=== PATIENT | male | born 1985 | race Caucasian/White ===

== ENCOUNTER 2021-03-19 18:18 | Emergency (ER) | payer MEDICAID, OTHER ==
[2021-03-19 18:31] VITALS: BP 134/79
--- NOTE | 2021-03-19 18:54 | ED Physician Documentation ---
History of Present Illness - Stated complaint Stated Complaint: NO TASTE/COUGH/BRAIN FOG - Chief complaint Chief Complaint: General - Additonal information Additional information: 35-year-old male who has no pertinent past medical history presents emergency department for evaluation of dry cough, loss of taste and smell that began 2 days ago. He was vaccinated against COVID-19 1 month ago with a [employer] vaccine. He did spend lots of time with 2 close friends about 1 week ago who have subsequently tested positive for Covid. He otherwise feels well. No chest pain or shortness of breath. Review of Systems Constitutional: denies: Fever, Chills Eyes: reports: Reviewed and negative Ears: reports: Reviewed and negative Nose: reports: Other (Loss of taste and smell) Throat: reports: Reviewed and negative Cardiac: reports: Reviewed and negative Respiratory: reports: Cough GI: reports: Reviewed and negative : reports: Reviewed and negative Skin: reports: Reviewed and negative Musculoskeletal: reports: Reviewed and negative PD PAST MEDICAL HISTORY - Past Medical History Past Medical History: Yes Cardiovascular: Other Respiratory: None Endocrine/Autoimmune: None GI: Other : None Psych: None Derm: None Other Past Medical History: ideopathic cholitis.pericardial cyst - Past Surgical History Past Surgical History: Yes General: Other HEENT: Tonsil/Adenoidectomy - Present Medications Home Medications: Ambulatory Orders Medication Instructions Recorded Confirmed No Known Home Medications 05/16/17 03/19/21 - Allergies Allergies/Adverse Reactions: Allergies Allergy/AdvReac Type Severity Reaction Status Date / Time No Known Drug Allergies Allergy Verified 03/19/21 18:30 - Social History Does the pt smoke?: No Smoking Status: Never smoker Does the pt drink ETOH?: No Does the pt have substance abuse?: Yes - Immunizations Immunizations are current?: Yes - POLST Patient has POLST: No PD ED PE NORMAL - General General: Alert and oriented X 3, No acute distress - HEENT HEENT: PERRL - Neck Neck: Supple, no meningeal sign - Cardiac Cardiac: RRR, No murmur - Respiratory Respiratory: Clear bilaterally - Abdomen Abdomen: Normal bowel sounds, Soft, Non tender, Non distended Results - Vitals Vitals: Vital Signs - 24 hr 03/19/21 18:26 Temperature 36.7 C Heart Rate 96 Respiratory 16 Rate Blood Pressure 134/79 H O2 Saturation 100 Oxygen O2 Source Room air PD MEDICAL DECISION MAKING - ED course Complexity details: d/w patient ED course: 35-year-old male here for COVID-19 screening. 2 days of cough loss of taste and smell. Close contact with friends who have subsequently tested positive for COVID-19. He is vaccinated for COVID-19 with the [employer] vaccine only. Emergent return precautions were discussed. Departure - Departure Disposition: 01 Home, Self Care Clinical Impression: Encounter for screening for COVID-19, Loss of taste Condition: Stable Record reviewed to determine appropriate education?: Yes Comments: You have a Covid test pending. You need to self quarantine until the result is done and negative. Do not leave your house. Do not get near anybody. The results should be done in 48 to 72 hours. We will call with a positive result, the fastest way to get a negative result for confirmation though is to go to the hospital website at [email or web address], click on the my [facility] tab and sign up for the patient portal. If any friends or family get sick and would like to have a Covid test done, but do not have signs or symptoms that would necessitate being hospitalized, we encourage testing through our coronavirus swabbing station, call [phone] to schedule an appointment.
== END 2021-03-19 18:57 | disposition home or self-care (01) ==
LOC: ED 18:18
DX: U07.1 COVID-19 (principal)
CPT/HCPCS: 87635; 99282; 99283

== ENCOUNTER 2021-03-20 08:19 | Emergency (ER) | payer OTHER ==
--- NOTE | 2021-03-20 09:08 | ED Physician Documentation ---
History of Present Illness - Stated complaint Stated Complaint: C+ BODYACHES/LOSS OF TASTE/SMELL - Chief complaint Chief Complaint: General - History obtained from History obtained from: Patient - Additonal information Additional information: Patient comes emergency department chief complaint of diagnosed with Covid yesterday and would like the antibody infusion. He states that he has felt fatigued and has had a loss of taste and smell. Slight nausea. He has not had any shortness of breath or cough. No fevers or chills. He states he feels congested. No other complaints at this time. The patient is otherwise healthy. He does have a BMI of greater than 25. Review of Systems Ten Systems: 10 systems reviewed and negative Constitutional: reports: Reviewed and negative Eyes: reports: Reviewed and negative Ears: reports: Reviewed and negative Nose: reports: Congestion Throat: reports: Reviewed and negative Cardiac: reports: Reviewed and negative Respiratory: reports: Reviewed and negative GI: reports: Nausea : reports: Reviewed and negative Skin: reports: Reviewed and negative Musculoskeletal: reports: Reviewed and negative Neurologic: reports: Reviewed and negative Psychiatric: reports: Reviewed and negative Endocrine: reports: Reviewed and negative Immunocompromised: reports: Reviewed and negative PD PAST MEDICAL HISTORY - Past Medical History Past Medical History: Yes Cardiovascular: Other Respiratory: None Endocrine/Autoimmune: None GI: Other : None Psych: None Derm: None - Past Surgical History Past Surgical History: Yes General: Other HEENT: Tonsil/Adenoidectomy - Present Medications Home Medications: Ambulatory Orders Medication Instructions Recorded Confirmed No Known Home Medications 05/16/17 03/20/21 - Allergies Allergies/Adverse Reactions: Allergies Allergy/AdvReac Type Severity Reaction Status Date / Time No Known Drug Allergies Allergy Verified 03/20/21 08:28 - Social History Does the pt smoke?: No Smoking Status: Never smoker Does the pt drink ETOH?: No Does the pt have substance abuse?: Yes - Immunizations Immunizations are current?: Yes - POLST Patient has POLST: No PD ED PE NORMAL - Vitals Vital signs reviewed: Yes - General General: Alert and oriented X 3, No acute distress, Well developed/nourished - HEENT HEENT: Atraumatic, PERRL, EOMI, Moist mucous membranes - Neck Neck: Supple, no meningeal sign - Cardiac Cardiac: RRR, No murmur - Respiratory Respiratory: No respiratory distress, Clear bilaterally - Abdomen Abdomen: Soft, Non tender, Non distended - Derm Derm: Warm and dry - Extremities Extremities: No deformity - Neuro Neuro: Alert and oriented X 3 - Psych Psych: Normal mood, Normal affect Results - Vitals Vitals: Oxygen O2 Source Room air PD MEDICAL DECISION MAKING - ED course Complexity details: considered differential, d/w patient ED course: I discussed the patient's case with pharmacy, and patient is given a monoclonal antibody infusion. We have discussed home management of the symptoms, the need to quarantine, and the usual indications for return. Departure - Departure Disposition: 01 Home, Self Care Clinical Impression: COVID Condition: Stable Instructions: COVID-19 [facility] Comments: You have been given an antibody infusion today. Please continue to use ibuprofen and Tylenol if needed for body aches and fevers. Drink plenty of fluids, get rest as much as possible, and to monitor yourself for any worsening in breathing. If you feel that you are becoming increasingly short of breath, please seek further evaluation. Discharge Date/Time: 03/20/21 12:01
--- NOTE | 2021-03-20 09:21 | XRAY Report ---
PROCEDURE: Chest 1 View X-Ray INDICATIONS: chest pain TECHNIQUE: One view of the chest was acquired. COMPARISON: None. FINDINGS: Surgical changes and devices: None. Lungs and pleura: No pleural effusions or pneumothorax. Lungs are clear. Mediastinum: Mediastinal contours appear normal. Heart size is normal. Bones and chest wall: No suspicious bony lesions. Overlying soft tissues appear unremarkable. IMPRESSION: No acute cardiopulmonary abnormality. Reviewed by: Rick Abernathy MD on 03/20/2021 8:20 AM DODIE Approved by: Rick Abernathy MD on 03/20/2021 8:20 AM DODIE Station ID: [id number]
[2021-03-20] MEDS ORDERED: CASIRIVIMAB/IMDEVIMAB 10 ML in SODIUM CHLORIDE 0.9% 50 ML IV ONE (10:00)
[2021-03-20 12:02] VITALS: BP 122/78
== END 2021-03-20 12:01 | disposition home or self-care (01) ==
LOC: ED 08:19
DX: U07.1 COVID-19 (principal)
CPT/HCPCS: 71045; 99283; J7040; M0243; Q0244